=== PATIENT | male | born 1980 | race Two or more races ===

== ENCOUNTER 2019-04-01 10:49 | Emergency (ER) | payer MEDICAID, OTHER ==
[~2019-04-01] VITALS: Ht 170.2 cm; Wt 68.2 kg
[~2019-04-01 10:49] MED LIST: NOCURR
[2019-04-01] MEDS ORDERED: LORazepam 1 MG TABLET PO ONE (12:45)
[2019-04-01 12:54] LABS: BASOPHILS % (AUTO) 0.6 % (0.0-2.0); EOSINOPHILS % (AUTO) 4.4 % (1.0-6.0); HEMATOCRIT 43.2 % (41-53); HEMOGLOBIN 14.9 g/dL (13.5-17.5); LYMPHOCYTES # (AUTO) 1.9 K/uL (1.0-4.8); LYMPHOCYTES % (AUTO) 22.8 % (22.0-44.0); MEAN CORPUSCULAR HEMOGLOBIN 31.1 pg (26.0-34.0); MEAN CORPUSCULAR HGB CONC 34.6 G/dL (31.0-37.0); MEAN CORPUSCULAR VOLUME 90 fL (80-100); MONOCYTES # (AUTO) 0.9 K/uL (0.1-1.0); MONOCYTES % (AUTO) 10.5 % (2.0-9.0); NEUTROPHILS % (AUTO) 61.7 % (40.0-70.0); PLATELET COUNT (AUTO) 293 K/uL (150-450); RED CELL DISTRIBUTION WIDTH 13.4 % (11.5-14.5)
[2019-04-01 13:21] LABS: ANION GAP 7 mmol/L (8-16); CALCIUM, TOTAL 8.4 mg/dL (8.8-10.5); CARBON DIOXIDE 27 mmol/L (22-29); CHLORIDE 103 mmol/L (98-107); CREATININE 0.76 mg/dL (0.60-1.30); GLOMERULAR FILTR. RATE CALC > 60 mL/min (>60); GLUCOSE,RANDOM 97 mg/dL (70-110); POTASSIUM 4.1 mmol/L (3.5-5.1); SODIUM SERUM 137 mmol/L (136-145); UREA NITROGEN, BLOOD 12 mg/dL (7-18)
[2019-04-01 13:26] LABS: AMPHET/METH SCREEN,URINE POSITIVE (NEGATIVE); BARBITURATE SCREEN, URINE NEGATIVE (NEGATIVE); BENZODIAZEPINES SCREEN,URINE NEGATIVE (NEGATIVE); CANNABINOID SCREEN,URINE NEGATIVE (NEGATIVE); COCAINE SCREEN,URINE NEGATIVE (NEGATIVE); METHADONE SCREEN, URINE NEGATIVE (NEGATIVE); OPIATE SCREEN,URINE NEGATIVE (NEGATIVE)
[2019-04-01 13:27] LABS: PHENCYCLIDINE SCREEN,URINE NEGATIVE (NEGATIVE)
[2019-04-01 13:30] LABS: ALBUMIN 3.5 g/dL (3.4-5.0); ALKALINE PHOSPHATASE 167 U/L (46-116); ASPARTATE AMINOTRANSFERASE 20 U/L (15-37); BILIRUBIN,TOTAL 0.5 mg/dL (0.1-1.0)
[2019-04-01 14:23] LABS: ALANINE AMINOTRANSFERASE 34 U/L (12-78)
[2019-04-01 14:35] VITALS: BP 124/67
== END 2019-04-01 15:42 | disposition home or self-care (01) ==
LOC: EMS 10:49
DX: F41.9 Anxiety disorder, unspecified (principal); F15.10 Other stimulant abuse, uncomplicated
CPT/HCPCS: 36415; 80053; 80307; 85025; 99285; G0480

== ENCOUNTER 2019-04-01 19:48 | Emergency (ER) | payer OTHER ==
[~2019-04-01] VITALS: Ht 170.2 cm; Wt 81.8 kg
[2019-04-01 21:22] LABS: BASOPHILS % (AUTO) 0.7 % (0.0-2.0); EOSINOPHILS % (AUTO) 3.4 % (1.0-6.0); HEMOGLOBIN 14.7 g/dL (13.5-17.5); LYMPHOCYTES # (AUTO) 2.6 K/uL (1.0-4.8); LYMPHOCYTES % (AUTO) 28.1 % (22.0-44.0); MEAN CORPUSCULAR HEMOGLOBIN 31.6 pg (26.0-34.0); MEAN CORPUSCULAR VOLUME 90 fL (80-100); MONOCYTES # (AUTO) 0.8 K/uL (0.1-1.0); MONOCYTES % (AUTO) 9.3 % (2.0-9.0); NEUTROPHILS # (AUTO) 5.3 K/uL (1.8-7.7); NEUTROPHILS % (AUTO) 58.5 % (40.0-70.0); PLATELET COUNT (AUTO) 305 K/uL (150-450); RED BLOOD CELL COUNT(AUTO) 4.65 MIL/uL (4.50-5.90); RED CELL DISTRIBUTION WIDTH 13.2 % (11.5-14.5)
[2019-04-01 21:34] LABS: ANION GAP 5 mmol/L (8-16); CALCIUM, TOTAL 8.2 mg/dL (8.8-10.5); CARBON DIOXIDE 28 mmol/L (22-29); CHLORIDE 101 mmol/L (98-107); GLOMERULAR FILTR. RATE CALC > 60 mL/min (>60); GLUCOSE,RANDOM 94 mg/dL (70-110); POTASSIUM 3.5 mmol/L (3.5-5.1); SODIUM SERUM 134 mmol/L (136-145); UREA NITROGEN, BLOOD 13 mg/dL (7-18)
[2019-04-01 21:39] LABS: ALANINE AMINOTRANSFERASE 33 U/L (12-78); ALBUMIN 3.6 g/dL (3.4-5.0); ALKALINE PHOSPHATASE 160 U/L (46-116); ASPARTATE AMINOTRANSFERASE 21 U/L (15-37); BILIRUBIN,TOTAL 0.5 mg/dL (0.1-1.0); TOTAL PROTEIN, SERUM 6.8 g/dL (6.4-8.2)
[2019-04-01 22:05] LABS: AMPHET/METH SCREEN,URINE POSITIVE (NEGATIVE); BARBITURATE SCREEN, URINE NEGATIVE (NEGATIVE); BENZODIAZEPINES SCREEN,URINE NEGATIVE (NEGATIVE); CANNABINOID SCREEN,URINE NEGATIVE (NEGATIVE); COCAINE SCREEN,URINE NEGATIVE (NEGATIVE); METHADONE SCREEN, URINE NEGATIVE (NEGATIVE); OPIATE SCREEN,URINE NEGATIVE (NEGATIVE); PHENCYCLIDINE SCREEN,URINE NEGATIVE (NEGATIVE)
[2019-04-01 23:32] VITALS: BP 104/70
== END 2019-04-01 23:33 | disposition home or self-care (01) ==
LOC: EMS 19:49
DX: F41.9 Anxiety disorder, unspecified (principal); F15.10 Other stimulant abuse, uncomplicated
CPT/HCPCS: 36415; 80053; 80307; 85025; 99284; G0480

== ENCOUNTER 2020-05-22 10:32 | Inpatient (IN) | payer MEDICAID, OTHER ==
[~2020-05-22] VITALS: Ht 167.6 cm; Wt 72.6 kg
[2020-05-22 11:23] LABS: BASOPHILS % (AUTO) 0.8 % (0.0-2.0); HEMATOCRIT 37.6 % (41-53); HEMOGLOBIN 12.7 g/dL (13.5-17.5); LYMPHOCYTES # (AUTO) 2.2 K/uL (1.0-4.8); LYMPHOCYTES % (AUTO) 30.5 % (22.0-44.0); MEAN CORPUSCULAR HEMOGLOBIN 30.5 pg (26.0-34.0); MEAN CORPUSCULAR HGB CONC 33.8 G/dL (31.0-37.0); MEAN CORPUSCULAR VOLUME 90 fL (80-100); MONOCYTES # (AUTO) 0.7 K/uL (0.1-1.0); MONOCYTES % (AUTO) 9.9 % (2.0-9.0); NEUTROPHILS % (AUTO) 55.8 % (40.0-70.0); PLATELET COUNT (AUTO) 256 K/uL (150-450); RED BLOOD CELL COUNT(AUTO) 4.17 MIL/uL (4.50-5.90); RED CELL DISTRIBUTION WIDTH 13.7 % (11.5-14.5)
[2020-05-22] MEDS ORDERED: HALOPERIDOL LACTATE 5 MG/ML VIAL IM ONE (11:30)
[2020-05-22] MEDS ORDERED: LORazepam 2 MG/ML VIAL IM ONE (11:30)
[2020-05-22] MEDS ORDERED: DiphenhydrAMINE HCL 50 MG/ML VIAL IM ONE (11:30)
[2020-05-22 11:47] LABS: ANION GAP 8 mmol/L (8-16); CALCIUM, TOTAL 8.4 mg/dL (8.8-10.5); CARBON DIOXIDE 26 mmol/L (22-29); CHLORIDE 104 mmol/L (98-107); CREATININE 0.72 mg/dL (0.60-1.30); GLOMERULAR FILTR. RATE CALC > 60 mL/min (>60); GLUCOSE,RANDOM 84 mg/dL (70-110); POTASSIUM 3.4 mmol/L (3.5-5.1); SODIUM SERUM 138 mmol/L (136-145); UREA NITROGEN, BLOOD 11 mg/dL (7-18)
[2020-05-22 11:52] LABS: ALANINE AMINOTRANSFERASE 43 U/L (12-78); ALBUMIN 3.6 g/dL (3.4-5.0); ALKALINE PHOSPHATASE 128 U/L (46-116); ASPARTATE AMINOTRANSFERASE 46 U/L (15-37); BILIRUBIN,TOTAL 0.7 mg/dL (0.1-1.0); TOTAL PROTEIN, SERUM 7.3 g/dL (6.4-8.2)
[2020-05-22] MEDS ORDERED: POTASSIUM CHLORIDE 20 MEQ ER TABLET PO ONE (13:45)
[2020-05-22 14:01] LABS: COVID AG,FIA SOURCE NASOPHARYNGEAL
[2020-05-22] MEDS ORDERED: INFLUENZA VIRUS VACCINE QVS 2020-21 (6MO+)/PF 60 MCG/0.5 ML SYRINGE IM ONE (20:15)
[2020-05-22 21:26] VITALS: BP 135/87
[2020-05-23 02:42] VITALS: BP 128/73
[2020-05-23] MEDS ORDERED: MAGNESIUM HYDROXIDE SUSPENSION 30 ML UDCUP PO PRN (07:15)
[2020-05-23] MEDS ORDERED: NICOTINE 14 MG/24 HOUR PATCH TD PRN (07:15)
[2020-05-23] MEDS ORDERED: MAG HYDROX/AL HYDROX/SIMETH ES 30 ML SUSPENSION UDCUP PO PRN (07:15)
[2020-05-23] MEDS ORDERED: IBUPROFEN 400 MG TABLET PO PRN (07:15)
[2020-05-23] MEDS ORDERED: CloNIDine HCL 0.1 MG TABLET PO PRN (07:15)
[2020-05-23] MEDS ORDERED: PETROLATUM,WHITE 28 GM JELLY TP PRN (07:15)
[2020-05-23] MEDS ORDERED: LOPERAMIDE HCL 2 MG CAPSULE PO PRN (07:15)
[2020-05-23] MEDS ORDERED: DOCUSATE SODIUM 100 MG CAPSULE PO PRN (07:15)
[2020-05-23] MEDS ORDERED: ALBUTEROL SULFATE HFA 90 MCG/PUFF 8 GM INHALER IH PRN (07:15)
[2020-05-23] MEDS ORDERED: ACETAMINOPHEN 325 MG TABLET PO PRN (07:15)
[2020-05-23] MEDS ORDERED: ONDANSETRON HCL 4 MG TABLET PO PRN (07:15)
[2020-05-23] MEDS ORDERED: GuaiFENesin/D-METHORPHAN [SUGAR-FREE] 200-20MG/10 ML SYRUP UDCUP PO PRN (07:15)
[2020-05-23 08:47] VITALS: BP 135/81
[2020-05-23] MEDS: LORazepam 2 MG TABLET PO PRN ×2 (09:43→17:13)
[2020-05-23] MEDS: HALOPERIDOL 5 MG TABLET PO PRN (09:43)
[2020-05-23] MEDS: OLANZapine 5 MG TABLET PO SCH (17:13)
[2020-05-23 18:27] VITALS: BP 103/66
[2020-05-24 01:15] VITALS: BP 124/83
[2020-05-24 08:05] VITALS: BP 123/68
[2020-05-24] MEDS: OLANZapine 5 MG TABLET PO SCH ×2 (09:07→17:06)
[2020-05-24 16:08] VITALS: BP 137/89
[2020-05-24] MEDS: LORazepam 2 MG TABLET PO PRN (17:06)
[2020-05-25 01:39] VITALS: BP 129/80
[2020-05-25 08:24] VITALS: BP 129/73
[2020-05-25] MEDS: LORazepam 2 MG TABLET PO PRN ×2 (08:33→16:57)
[2020-05-25] MEDS: OLANZapine 5 MG TABLET PO SCH ×2 (08:34→16:57)
[2020-05-25] MEDS: FERROUS SULFATE 325 MG EC TABLET PO SCH (16:57)
[2020-05-26 00:28] VITALS: BP 125/73
[2020-05-26] MEDS: ZOLPIDEM TARTRATE 10 MG TABLET PO PRN (00:58)
[2020-05-26] MEDS: FERROUS SULFATE 325 MG EC TABLET PO SCH ×2 (06:15→16:55)
[2020-05-26 08:05] VITALS: BP 136/81
[2020-05-26] MEDS: OLANZapine 5 MG TABLET PO SCH ×2 (09:37→16:55)
[2020-05-26] MEDS: LORazepam 2 MG TABLET PO PRN ×2 (09:38→16:56)
[2020-05-26] MEDS: HALOPERIDOL 5 MG TABLET PO PRN (16:56)
[2020-05-26 17:14] VITALS: BP 140/91
[2020-05-27 02:31] VITALS: BP 139/92
[2020-05-27] MEDS: FERROUS SULFATE 325 MG EC TABLET PO SCH ×2 (06:34→17:35)
[2020-05-27] MEDS: OLANZapine 5 MG TABLET PO SCH ×2 (08:21→17:35)
[2020-05-27 09:04] VITALS: BP 142/84
[2020-05-27 16:13] VITALS: BP 152/93
[2020-05-27] MEDS: LORazepam 2 MG TABLET PO PRN (17:35)
[2020-05-27] MEDS: ZOLPIDEM TARTRATE 10 MG TABLET PO PRN (21:32)
[2020-05-28 02:06] VITALS: BP 134/87
[2020-05-28] MEDS: LORazepam 2 MG TABLET PO PRN ×3 (02:09→16:43)
[2020-05-28] MEDS: HALOPERIDOL 5 MG TABLET PO PRN (02:09)
[2020-05-28] MEDS: FERROUS SULFATE 325 MG EC TABLET PO SCH ×2 (06:35→16:43)
[2020-05-28] MEDS: OLANZapine 5 MG TABLET PO SCH ×2 (09:01→16:43)
[2020-05-28 09:28] VITALS: BP 122/76
[2020-05-28 16:20] VITALS: BP 117/66
[2020-05-29 05:15] VITALS: BP 119/75
[2020-05-29] MEDS: LORazepam 2 MG TABLET PO PRN ×3 (06:25→17:34)
[2020-05-29] MEDS: FERROUS SULFATE 325 MG EC TABLET PO SCH ×2 (06:25→16:51)
[2020-05-29] MEDS: OLANZapine 5 MG TABLET PO SCH (08:20)
[2020-05-29 09:23] VITALS: BP 132/86
[2020-05-29 16:03] VITALS: BP 109/71
[2020-05-29] MEDS: HALOPERIDOL 5 MG TABLET PO PRN (16:51)
[2020-05-29] MEDS: OLANZapine 10 MG TABLET PO SCH (20:53)
[2020-05-30 00:57] VITALS: BP 117/68
[2020-05-30] MEDS: FERROUS SULFATE 325 MG EC TABLET PO SCH ×2 (06:12→16:38)
[2020-05-30 08:06] VITALS: BP 115/70
[2020-05-30] MEDS: OLANZapine 5 MG TABLET PO SCH (09:29)
[2020-05-30 16:06] VITALS: BP 122/79
[2020-05-30] MEDS: LORazepam 2 MG TABLET PO PRN (16:38)
[2020-05-30] MEDS: OLANZapine 10 MG TABLET PO SCH (20:36)
[2020-05-31 02:17] VITALS: BP 126/74
[2020-05-31] MEDS: LORazepam 2 MG TABLET PO PRN ×2 (06:04→16:30)
[2020-05-31] MEDS: FERROUS SULFATE 325 MG EC TABLET PO SCH ×2 (06:14→16:30)
[2020-05-31 08:12] VITALS: BP 128/71
[2020-05-31] MEDS: OLANZapine 5 MG TABLET PO SCH (08:51)
[2020-05-31 16:07] VITALS: BP 125/78
[2020-05-31] MEDS: HALOPERIDOL 5 MG TABLET PO PRN (16:30)
[2020-05-31] MEDS: OLANZapine 10 MG TABLET PO SCH (20:32)
[2020-06-01 00:36] VITALS: BP 136/89
[2020-06-01] MEDS: FERROUS SULFATE 325 MG EC TABLET PO SCH ×2 (06:02→16:31)
[2020-06-01] MEDS: LORazepam 2 MG TABLET PO PRN (06:03)
[2020-06-01] MEDS: OLANZapine 5 MG TABLET PO SCH (08:03)
[2020-06-01 08:19] VITALS: BP 125/73
[2020-06-01 16:26] VITALS: BP 117/70
[2020-06-01] MEDS: OLANZapine 10 MG TABLET PO SCH (20:27)
[2020-06-02 01:15] VITALS: BP 115/67
[2020-06-02] MEDS: FERROUS SULFATE 325 MG EC TABLET PO SCH ×2 (06:20→16:30)
[2020-06-02] MEDS: OLANZapine 5 MG TABLET PO SCH (08:43)
[2020-06-02 09:00] VITALS: BP 138/87
[2020-06-02 09:43] LABS: COVID AG,FIA SOURCE NASOPHARYNGEAL
[2020-06-02] MEDS: LORazepam 2 MG TABLET PO PRN ×2 (11:17→16:30)
[2020-06-02 16:27] VITALS: BP 134/82
[2020-06-02] MEDS: HALOPERIDOL 5 MG TABLET PO PRN (16:30)
[2020-06-02] MEDS: ZOLPIDEM TARTRATE 10 MG TABLET PO PRN (20:27)
[2020-06-02] MEDS: OLANZapine 10 MG TABLET PO SCH (20:27)
[2020-06-03 02:39] VITALS: BP 138/87
[2020-06-03] MEDS: FERROUS SULFATE 325 MG EC TABLET PO SCH ×2 (06:18→16:46)
[2020-06-03 08:21] VITALS: BP 122/74
[2020-06-03] MEDS: LORazepam 2 MG TABLET PO PRN ×2 (08:54→16:46)
[2020-06-03] MEDS: HALOPERIDOL 5 MG TABLET PO PRN ×2 (08:54→16:45)
[2020-06-03] MEDS: OLANZapine 10 MG TABLET PO SCH ×2 (08:54→20:39)
[2020-06-03 16:05] VITALS: BP 119/75
[2020-06-03] MEDS: ZOLPIDEM TARTRATE 10 MG TABLET PO PRN (20:39)
[2020-06-04 00:12] VITALS: BP 128/80
[2020-06-04] MEDS: FERROUS SULFATE 325 MG EC TABLET PO SCH ×2 (07:13→17:10)
[2020-06-04 08:32] VITALS: BP 116/79
[2020-06-04] MEDS: OLANZapine 10 MG TABLET PO SCH ×2 (09:24→20:46)
[2020-06-04 16:11] VITALS: BP 126/76
[2020-06-04] MEDS: LORazepam 2 MG TABLET PO PRN (17:44)
[2020-06-05 06:03] VITALS: BP 117/71
[2020-06-05] MEDS: FERROUS SULFATE 325 MG EC TABLET PO SCH ×2 (06:23→16:16)
[2020-06-05] MEDS: LORazepam 2 MG TABLET PO PRN ×2 (06:23→16:57)
[2020-06-05 08:28] VITALS: BP 128/73
[2020-06-05] MEDS: OLANZapine 10 MG TABLET PO SCH ×2 (09:08→21:01)
[2020-06-05 16:09] VITALS: BP 129/85
[2020-06-05] MEDS: HALOPERIDOL 5 MG TABLET PO PRN (16:57)
[2020-06-06 02:27] VITALS: BP 121/74
[2020-06-06] MEDS: FERROUS SULFATE 325 MG EC TABLET PO SCH ×2 (06:26→17:13)
[2020-06-06] MEDS: LORazepam 2 MG TABLET PO PRN ×2 (06:26→14:14)
[2020-06-06 08:51] VITALS: BP 129/92
[2020-06-06] MEDS: OLANZapine 10 MG TABLET PO SCH ×2 (09:14→20:35)
[2020-06-06 16:16] VITALS: BP 118/72
[2020-06-06] MEDS: HALOPERIDOL 5 MG TABLET PO PRN (17:17)
[2020-06-07 03:32] VITALS: BP 126/80
[2020-06-07] MEDS: HALOPERIDOL 5 MG TABLET PO PRN ×3 (03:34→14:43)
[2020-06-07] MEDS: LORazepam 2 MG TABLET PO PRN ×3 (03:34→14:44)
[2020-06-07] MEDS: FERROUS SULFATE 325 MG EC TABLET PO SCH ×2 (06:12→16:51)
[2020-06-07 08:06] VITALS: BP 123/77
[2020-06-07] MEDS: OLANZapine 10 MG TABLET PO SCH ×2 (08:29→20:33)
[2020-06-07 16:12] VITALS: BP 103/68
[2020-06-08 02:51] VITALS: BP 121/67
[2020-06-08] MEDS: HALOPERIDOL 5 MG TABLET PO PRN ×2 (02:57→16:14)
[2020-06-08] MEDS: LORazepam 2 MG TABLET PO PRN ×2 (02:57→16:14)
[2020-06-08] MEDS: FERROUS SULFATE 325 MG EC TABLET PO SCH ×2 (06:14→16:14)
[2020-06-08 08:23] VITALS: BP 126/65
[2020-06-08] MEDS: OLANZapine 10 MG TABLET PO SCH (09:04)
[2020-06-08] MEDS ORDERED: OLAN10TA3 PO (12:41)
[2020-06-08 16:26] VITALS: BP 114/66
== END 2020-06-08 18:18 | disposition home or self-care (01) | DRG 750 ==
LOC: EMS 10:32 → B3A 17:42
PROVIDERS: ADMIT Psychiatry & Neurology Psychiatry; ATTEND Psychiatry & Neurology Psychiatry
DX: F20.0 Paranoid schizophrenia (principal); Z59.0 Homelessness; F15.10 Other stimulant abuse, uncomplicated; F17.210 Nicotine dependence, cigarettes, uncomplicated; D64.9 Anemia, unspecified; E87.6 Hypokalemia; R03.0 Elevated blood-pressure reading, without diagnosis of hypertension; Z91.14 Patient's other noncompliance with medication regimen; F41.9 Anxiety disorder, unspecified; Z20.828 Contact with and (suspected) exposure to other viral communicable diseases; Z23 Encounter for immunization
CPT/HCPCS: 84132; 87426; 90686; 99291; G0480; J1200; J1630; J2060

== ENCOUNTER 2022-10-18 10:56 | Emergency (ER) | payer MEDICAID, OTHER ==
[~2022-10-18] VITALS: Ht 172.7 cm; Wt 79.5 kg
[~2022-10-18 10:56] MED LIST changes: -NOCURR; +OLAN10TA74 PO
[2022-10-18] MEDS ORDERED: SODIUM CHLORIDE 0.9% 1,000 ML IV ONE (11:45)
[2022-10-18 12:26] LABS: BASOPHILS % (AUTO) 0.8 % (0.0-2.0); EOSINOPHILS % (AUTO) 1.8 % (1.0-6.0); HEMATOCRIT 41.4 % (41-53); HEMOGLOBIN 14.5 g/dL (13.5-17.5); LYMPHOCYTES # (AUTO) 1.3 K/uL (1.0-4.8); LYMPHOCYTES % (AUTO) 16.4 % (22.0-44.0); MEAN CORPUSCULAR HEMOGLOBIN 31.6 pg (26.0-34.0); MEAN CORPUSCULAR HGB CONC 35.1 G/dL (31.0-37.0); MEAN CORPUSCULAR VOLUME 90 fL (80-100); MONOCYTES # (AUTO) 0.5 K/uL (0.1-1.0); MONOCYTES % (AUTO) 6.4 % (2.0-9.0); NEUTROPHILS % (AUTO) 74.6 % (40.0-70.0); PLATELET COUNT (AUTO) 239 K/uL (150-450); RED CELL DISTRIBUTION WIDTH 12.8 % (11.5-14.5)
[2022-10-18 12:38] LABS: ANION GAP 11 mmol/L (8-16); CALCIUM, TOTAL 8.6 mg/dL (8.8-10.5); CARBON DIOXIDE 22 mmol/L (22-29); CHLORIDE 106 mmol/L (98-107); CREATININE 0.85 mg/dL (0.60-1.30); GLOMERULAR FILTR. RATE CALC > 60 mL/min (>60); GLUCOSE,RANDOM 156 mg/dL (70-110); POTASSIUM 3.5 mmol/L (3.5-5.1); SODIUM SERUM 139 mmol/L (136-145)
[2022-10-18 12:40] LABS: PROTHROMBIN TIME 10.5 SEC (9.4-11.6)
[2022-10-18 12:45] LABS: LACTIC ACID 0.9 mmol/L (0.4-2.0)
[2022-10-18 12:52] LABS: ALANINE AMINOTRANSFERASE 35 U/L (12-78); ALBUMIN 3.8 g/dL (3.4-5.0); ALKALINE PHOSPHATASE 129 U/L (46-116); ASPARTATE AMINOTRANSFERASE 32 U/L (15-37); TOTAL PROTEIN, SERUM 7.1 g/dL (6.4-8.2)
[2022-10-18 15:45] LABS: APPEARANCE,URINE CLEAR (CLEAR); BILIRUBIN,URINE NEGATIVE (NEGATIVE); GLUCOSE, URINE (UA) 300-500 mg/dL (NEGATIVE); KETONES,URINE NEGATIVE (NEGATIVE); LEUKOCYTE ESTERASE ,URINE NEGATIVE (NEGATIVE); NITRATE,URINE NEGATIVE (NEGATIVE); OCCULT BLOOD,URINE NEGATIVE (NEGATIVE); PROTEIN,URINE TRACE mg/dL (NEGATIVE); SPECIFIC GRAVITIY, URINE 1.019 (1.003-1.030); UROBILINOGEN,URINE <=1.0 mg/dL (<=1.0)
[2022-10-18 16:20] LABS: BACTERIA,URINE None Seen /HPF (None Seen); RBC,URINE None Seen /HPF (0-2)
[2022-10-18 16:21] LABS: WBC,URINE 0-2 /HPF (0-5)
[2022-10-18 16:34] LABS: AMPHET/METH SCREEN,URINE POSITIVE (NEGATIVE); BARBITURATE SCREEN, URINE NEGATIVE (NEGATIVE); BENZODIAZEPINES SCREEN,URINE NEGATIVE (NEGATIVE); CANNABINOID SCREEN,URINE NEGATIVE (NEGATIVE); COCAINE SCREEN,URINE NEGATIVE (NEGATIVE); METHADONE SCREEN, URINE NEGATIVE (NEGATIVE); OPIATE SCREEN,URINE NEGATIVE (NEGATIVE); PHENCYCLIDINE SCREEN,URINE NEGATIVE (NEGATIVE)
[2022-10-18 17:34] VITALS: BP 100/61
== END 2022-10-18 18:04 | disposition home or self-care (01) ==
LOC: EMS 11:13
DX: T43.591A Poisoning by other antipsychotics and neuroleptics, accidental (unintentional), initial encounter (principal); F41.9 Anxiety disorder, unspecified; F20.9 Schizophrenia, unspecified; F15.90 Other stimulant use, unspecified, uncomplicated; Y92.89 Other specified places as the place of occurrence of the external cause
CPT/HCPCS: 99291; 96360; 70450; 71045; 80053; 82140; 83605; 85025; 85610; 85730; 36415; 93005; 51702; 81003; 81001; 80307 ×2; J7030